=== PATIENT | male | born 1945 | race Hispanic/Latino ===

== ENCOUNTER → 2021-05-05 | Day surgery (SDC) | payer MEDICARE, OTHER ==
[~2021-05-05] MED LIST: ASPIRIN81 MG PO; FENTANYL CITRATE/PF 100MCG/2 ML INJ ONE; FISH OIL 1,0001 EAC2 PO; LIDOCAINE HCL 2% LOCAL INJ 5 ML SDV VIAL INJ ONE; METFORMIN HCL500 MG PO; OMEPRAZOLE40 MG PO; PROPOFOL IV EMULSION 10 MG/ML 20 ML VIAL ONE; SIMVASTATIN20 MG PO; ZESTRIL10 MG PO
[2021-05-05 08:18] LABS: BASOPHILS % 0.4 % (0.0-1.0); EOSINOPHILS % 0.3 % (0.0-6.0); HEMATOCRIT 48.3 % (38.2-49.6); HEMOGLOBIN 16.2 g/dL (14.0-18.0); LYMPHOCYTES # (AUTO) 1.1 (1.0-3.2); LYMPHOCYTES % 14.7 % (18.0-39.1); MEAN CORPUSCULAR HEMOGLOBIN 29.6 pg (28-32); MEAN CORPUSCULAR HGB CONC 33.5 g/dL (31-35); MEAN CORPUSCULAR VOLUME 88.3 fL (81-99); MONOCYTES # (AUTO) 0.4 (0.2-0.8); MONOCYTES % 5.7 % (4.4-11.3); NEUTROPHILS # (AUTO) 5.7 (2.1-6.9); NEUTROPHILS % 78.6 % (38.7-80.0); PLATELET COUNT 248 x10e3/uL (140-360); RED BLOOD COUNT 5.47 x10e6/uL (4.3-5.7); RED CELL DISTRIBUTION WIDTH 13.4 % (11.7-14.4)
[2021-05-05 11:25] VITALS: BP 156/88
== END | disposition home or self-care (01) ==
LOC: OR 07:25
PROVIDERS: ATTEND Internal Medicine Gastroenterology
DX: Z12.11 Encounter for screening for malignant neoplasm of colon (principal); D12.2 Benign neoplasm of ascending colon; D12.4 Benign neoplasm of descending colon; K31.7 Polyp of stomach and duodenum; K62.89 Other specified diseases of anus and rectum; K64.8 Other hemorrhoids; K44.9 Diaphragmatic hernia without obstruction or gangrene; K29.70 Gastritis, unspecified, without bleeding; K21.9 Gastro-esophageal reflux disease without esophagitis; Z98.0 Intestinal bypass and anastomosis status; Z90.49 Acquired absence of other specified parts of digestive tract; Z71.3 Dietary counseling and surveillance; I10 Essential (primary) hypertension; R06.83 Snoring; E11.9 Type 2 diabetes mellitus without complications; R00.1 Bradycardia, unspecified; Z01.810 Encounter for preprocedural cardiovascular examination; Z01.812 Encounter for preprocedural laboratory examination; Z20.822 Contact with and (suspected) exposure to COVID-19; Z79.84 Long term (current) use of oral hypoglycemic drugs; Z79.82 Long term (current) use of aspirin; Z79.899 Other long term (current) drug therapy; Z68.33 Body mass index [BMI] 33.0-33.9, adult
CPT/HCPCS: 36415; 43239; 45380; 45384; 45385; 82948; 85025; 93005; J2001; J2704; J3010; U0002; 45378

== ENCOUNTER 2024-09-10 07:22 | Observation (INO) | payer MEDICARE, OTHER ==
[2024-09-03 11:57] LABS: BASOPHILS % 0.4 % (0.0-1.0); EOSINOPHILS % 1.1 % (0.0-6.0); LYMPHOCYTES % 32.6 % (18.0-39.1); MONOCYTES % 10.7 % (4.4-11.3); NEUTROPHILS % 54.6 % (38.7-80.0); RED CELL DISTRIBUTION WIDTH 17.0 % (11.7-14.4)
[2024-09-03 12:21] LABS: EST GLOMERULAR FILTRATION RATE 51.0 ML/MIN (>=60)
[~2024-09-10] VITALS: Ht 167.6 cm; Wt 88.9 kg
[2024-09-10] VITALS (8 sets, daily range): BP systolic 132–155; BP diastolic 63–84; PULSE 61–80; RESP 16–20; TEMP 97.5–98.2; O2SAT 95–98
[~2024-09-10 07:22] MED LIST changes: +AREDS PO; +BACTRIM 400-801 EACH PO; +CRESTOR40 MG PO; -FENTANYL CITRATE/PF 100MCG/2 ML INJ ONE; +FINASTERIDE5 MG PO; +FLOMAX0.4 MG PO; -LIDOCAINE HCL 2% LOCAL INJ 5 ML SDV VIAL INJ ONE; +LUMIGAN2.5 M1 OP; -PROPOFOL IV EMULSION 10 MG/ML 20 ML VIAL ONE
[2024-09-10] MEDS: LACTATED RINGER'S 1,000 ML ONE (08:04)
[2024-09-10] MEDS ORDERED: ROCURONIUM BROMIDE 1 ML IV ONE (09:04)
[2024-09-10] MEDS ORDERED: PROPOFOL IV EMULSION 10 MG/ML 20 ML VIAL ONE (09:04)
[2024-09-10] MEDS ORDERED: LIDOCAINE HCL 2% LOCAL INJ 5 ML SDV VIAL INJ ONE (09:04)
[2024-09-10] MEDS ORDERED: FENTANYL CITRATE/PF 100MCG/2 ML INJ ONE ×2 (10:32→12:20)
[2024-09-10] MEDS ORDERED: ONDANSETRON HCL INJ 2MG/ML 2ML 2 MG/ML VIAL ONE (10:39)
[2024-09-10] MEDS ORDERED: SEVOFLURANE INHAL SOLN 250 ML PEN BTL ONE (10:42)
[2024-09-10] MEDS ORDERED: ACETAMINOPHEN 1000 MG/100 ML 100 ML IV ONE (10:42)
[2024-09-10] MEDS ORDERED: EPHEDRINE SULFATE INJ 50 MG/ML VIAL ONE (10:56)
[2024-09-10] MEDS ORDERED: NEOSTIGMINE 1 MG/ML 10ML VIAL ONE (12:17)
[2024-09-10] MEDS ORDERED: GLYCOPYRROLATE INJ 0.2 MG/ML VIAL ONE (12:17)
[2024-09-10] MEDS ORDERED: HYDROCODONE/APAP 7.5MG-325MG 1 EA TAB PO PRN (12:45)
[2024-09-10] MEDS ORDERED: HYDROMORPHONE 1MG/1ML INJ IV PRN (12:45)
[2024-09-10] MEDS ORDERED: ONDANSETRON HCL INJ 2MG/ML 2ML 2 MG/ML VIAL IV PRN (12:45)
[2024-09-10] MEDS: TAMSULOSIN HCL 0.4 MG CAP PO SCH (15:47)
[2024-09-10] MEDS: SODIUM CHLORIDE 0.9% 1000ML 1,000 ML IV SCH (15:47)
[2024-09-10] MEDS: METFORMIN HCL 500 MG TAB PO SCH (15:48)
[2024-09-10] MEDS: BIMATOPROST(OPTH) 2.5 ML BOTTLE OP SCH (20:39)
[2024-09-11 02:44] VITALS: BP 125/57; PULSE 82; RESP 18; TEMP 98.6; O2SAT 98
[2024-09-11 04:36] VITALS: BP 133/54; PULSE 85; RESP 18; TEMP 98.2; O2SAT 96
[2024-09-11 06:12] LABS: BASOPHILS % 0.1 % (0.0-1.0); EOSINOPHILS % 0.0 % (0.0-6.0); LYMPHOCYTES % 8.6 % (18.0-39.1); MONOCYTES % 10.3 % (4.4-11.3); NEUTROPHILS % 80.6 % (38.7-80.0); RED CELL DISTRIBUTION WIDTH 17.0 % (11.7-14.4)
[2024-09-11 06:43] LABS: EST GLOMERULAR FILTRATION RATE 60.0 ML/MIN (>=60)
[2024-09-11 09:00] VITALS: BP 143/70; PULSE 90; RESP 20; TEMP 99; O2SAT 95
[2024-09-11] MEDS: LISINOPRIL 10 MG TAB PO SCH (09:15)
[2024-09-11] MEDS: FINASTERIDE 5 MG TAB PO SCH (09:15)
[2024-09-11] MEDS: ACETAMINOPHEN 1000 MG/100 ML IV PRN (09:18)
[2024-09-11 09:27] VITALS: BP 133/54; PULSE 90; RESP 20; TEMP 99; O2SAT 95
[2024-09-11 12:06] VITALS: BP 115/54; PULSE 73; RESP 18; O2SAT 97
== END 2024-09-11 12:27 | disposition home or self-care (01) ==
LOC: OR 07:22 → PACU V 12:49 → MED/SURG3 14:02
PROVIDERS: ADMIT Surgery; ATTEND Surgery
DX: K43.6 Other and unspecified ventral hernia with obstruction, without gangrene (principal); E11.9 Type 2 diabetes mellitus without complications; I10 Essential (primary) hypertension; E78.5 Hyperlipidemia, unspecified; Z01.810 Encounter for preprocedural cardiovascular examination; Z01.812 Encounter for preprocedural laboratory examination; Z01.818 Encounter for other preprocedural examination; N40.0 Benign prostatic hyperplasia without lower urinary tract symptoms; Z79.84 Long term (current) use of oral hypoglycemic drugs
CPT/HCPCS: 36415 ×3; 49596; 71046; 80048 ×2; 82948 ×2; 85025 ×2; 93005; 94799; C1781; G0378 ×2; J0131 ×2; J0690 ×2; J2003; J2405; J2704; J2710; J3010; J7030 ×2; J7121